=== PATIENT | male | born 1990 | race African-American/Black ===

== ENCOUNTER 2022-10-23 09:32 | Outpatient (CLI) | payer OTHER ==
--- NOTE | 2022-10-23 16:50 | MRI Report ---
PROCEDURE: HIP WO - LT INDICATIONS: LEFT HIP PAIN TECHNIQUE: Noncontrast coronal T1 spin echo and STIR through the bony pelvis. Coronal and axial T2 fast spin ec ho with fat saturation, sagittal T1 spin echo, and oblique axial T2 fast spin echo with fat saturatio n through the hip. COMPARISON: None. FINDINGS: Image quality: Excellent. Bones and joints: Bone marrow of the pelvic ring and proximal femurs show normal signal throughout. No intraosseous lesions or fractures. No avascular necrosis of the femoral heads. The visualized l ower lumbar spine appears normally aligned. Tendons: The gluteus medius and minimus tendons appear intact, without associated muscle atrophy. T he iliopsoas tendon appears intact, without adjacent bursal fluid collections. The origin of the ham string tendon is intact at the ischial tuberosity. Labrum and cartilage: The acetabular labrum appears intact in the absence of intra-articular contras t. Cartilage surface of the femoral head appears of normal thickness. The alpha angle of the femur is within normal limits at less than 55 degrees. Soft tissues: Visualized muscles demonstrate normal bulk and internal signal. The proximal sciatic neurovascular bundle appears normal adjacent to the hamstring tendons. No free pelvic fluid. Bladde r wall thickness is normal. Genitourinary structures and bowel loops appear normal where visualized. IMPRESSION: This is a normal study. Reviewed by: Urszula Roach MD on 10/23/2022 4:48 PM PDT Approved by: Urszula Roach MD on 10/23/2022 4:48 PM PDT Station ID: [id number]
== END 2022-10-23 09:33 | disposition home or self-care (01) ==
LOC: DI 09:32
PROVIDERS: ATTEND Anesthesiology
DX: M25.552 Pain in left hip (principal)

== ENCOUNTER 2023-03-27 07:07 | Emergency (ER) | payer OTHER ==
[2023-03-27 08:05] LABS: BASOPHILS # (AUTO) 0.1 10^3/uL (0.0-0.1); BASOPHILS % (AUTO) 0.6 %; EOSINOPHILS # (AUTO) 0.1 10^3/uL (0.0-0.7); EOSINOPHILS % (AUTO) 0.5 %; HCT - HEMATOCRIT 43.7 % (42.0-52.0); HGB - HEMOGLOBIN 14.1 g/dL (14.0-18.0); LYMPHOCYTES # (AUTO) 1.4 10^3/uL (1.5-3.5); LYMPHOCYTES % (AUTO) 14.6 %; MEAN CORPUSCULAR HEMOGLOBIN 23.1 pg (27.0-31.0); MEAN CORPUSCULAR HGB CONC 32.3 g/dL (32.0-36.0); MEAN CORPUSCULAR VOLUME 71.6 fL (80.0-94.0); MEAN PLATELET VOLUME 8.1 fL (7.4-11.4); MONOCYTES # (AUTO) 0.9 10^3/uL (0.0-1.0); NEUTROPHILS # (AUTO) 7.4 10^3/uL (1.5-6.6); NRBC ABSOLUTE COUNT (AUTO) 0.03 x10^3/uL; NUCLEATED RED BLOOD CELLS AUTO 0.3 /100WBC; PLT - PLATELET COUNT 243 10^3/uL (130-450); RED CELL DISTRIBUTION WIDTH 16.2 % (12.0-15.0); WHITE BLOOD COUNT 9.8 x10^3/uL (4.8-10.8)
[2023-03-27 08:20] LABS: ALBUMIN 5.2 g/dL (3.2-5.5); ALBUMIN/GLOBULIN RATIO 1.6 (1.0-2.2); BILIRUBIN,TOTAL 1.9 mg/dL (0.2-1.0); CALCIUM 10.4 mg/dL (8.5-10.3); CREATININE 0.9 mg/dL (0.6-1.3); POTASSIUM 3.9 mmol/L (3.5-4.5); TOTAL PROTEIN 8.4 g/dL (6.4-8.9)
[2023-03-27 08:36] LABS: GLUCOSE, URINE (UA) NEGATIVE (NEGATIVE); KETONES,URINE (UA) >=80 mg/dL (NEGATIVE); LEUKOCYTE ESTERASE, URINE NEGATIVE (NEGATIVE); NITRITE,URINE NEGATIVE (NEGATIVE); OCCULT BLOOD,URINE TRACE-LYSE (NEGATIVE); PH,URINE 7.5 PH (5.0-7.5); PROTEIN,URINE 30 mg/dL (NEGATIVE); UROBILINOGEN,URINE 1 (NORMAL) E.U./dL (NORMAL)
--- NOTE | 2023-03-27 08:39 | ED Physician Documentation ---
PD HPI NVD - Stated complaint Stated Complaint: VOMITING,ABD PX - Chief complaint Chief Complaint: Abd Pain - History obtained from History obtained from: Patient - History of Present Illness Timing - onset: Yesterday Timing - duration: Days (1) Timing - details: Abrupt onset, Still present (but less cramping and pain. Nausea today without vomiting.) Associated symptoms: Abdominal pain (cramping intermittent diffuse/mid abd) Contributing factors: No: Sick contact, Bad food Improved by: No: Eating Worsened by: Eating Similar symptoms before: Has not had sx before PD PAST MEDICAL HISTORY - Past Medical History Past Medical History: No - Past Surgical History Past Surgical History: No - Present Medications Home Medications: Ambulatory Orders Medication Instructions Recorded Confirmed Ondansetron Odt [Zofran] 4 mg TL Q6H PRN #10 tablet 03/27/23 - Allergies Allergies/Adverse Reactions: Allergies Allergy/AdvReac Type Severity Reaction Status Date / Time No Known Drug Allergies Allergy Verified 03/27/23 07:32 - Social History Does the pt smoke?: No Smoking Status: Never smoker PD ED PE NORMAL - Vitals Vital signs reviewed: Yes - General General: Alert and oriented X 3, No acute distress, Well developed/nourished - Neck Neck: Supple, no meningeal sign, No adenopathy - Cardiac Cardiac: RRR, No murmur - Respiratory Respiratory: No respiratory distress - Abdomen Abdomen: Normal bowel sounds, Soft, Non tender, Non distended - Derm Derm: Normal color, Warm and dry Results - Labs Labs: Laboratory Tests 03/27/23 03/27/23 03/27/23 08:00 08:00 08:24 WBC 9.8 RBC 6.10 Hgb 14.1 Hct 43.7 MCV 71.6 L MCH 23.1 L MCHC 32.3 RDW 16.2 H Plt Count 243 MPV 8.1 Neut # (Auto) 7.4 H Lymph # (Auto) 1.4 L Roane # (Auto) 0.9 Eos # (Auto) 0.1 Baso # (Auto) 0.1 Absolute Nucleated RBC 0.03 Nucleated RBC % 0.3 Sodium 137 Potassium 3.9 Chloride 94 L Carbon Dioxide 32 Anion Gap 11.0 BUN 12 Creatinine 0.9 Estimated GFR (MDRD) 120 Glucose 119 H Calcium 10.4 H Total Bilirubin 1.9 H AST 28 ALT 31 Alkaline Phosphatase 90 Total Protein 8.4 Albumin 5.2 Globulin 3.2 Albumin/Globulin Ratio 1.6 Lipase 44 Urine Color YELLOW Urine Clarity CLEAR Urine pH 7.5 Ur Specific Bowen 1.015 Urine Protein 30 H Urine Glucose (UA) NEGATIVE Urine Ketones >=80 H Urine Occult Blood TRACE-LYSE Urine Nitrite NEGATIVE Urine Bilirubin NEGATIVE Urine Urobilinogen 1 (NORMAL) Ur Leukocyte Esterase NEGATIVE Urine RBC 0-5 Urine WBC 0-3 Ur Squamous Epith Cells FEW Squamous Urine Bacteria Few Ur Microscopic Review INDICATED Urine Culture Comments NOT INDICATED PD Medical Decision Making - ED course Complexity details: reviewed results (normal lytes and renal fucntion. No elevation of LFTs nor lipase. ), re-evaluated patient (feeling improved with meds of Zofran and Mylanta. Able to take PO intake.), considered differential (abrupt nausea dn vomting with some loose stools. Nonfocal abd pain and not tender at this time. shared decision to treat at viral/food related and low suspicion for appy/etc. He feels he does not need IV. Given PO Zofran and antacid. Labs but defer imaging at this time. ), d/w patient Departure - Departure Disposition: 01 Home, Self Care Clinical Impression: Nausea and vomiting Condition: Stable Record reviewed to determine appropriate education?: Yes Instructions: ED Nausea Vomiting Follow-Up: MARILY Monge [Provider Group] Prescriptions: Ondansetron Odt [Zofran] 4 mg TL Q6H PRN #10 tablet PRN Reason: Nausea / Vomiting Comments: This sounds most likely to be a viral "stomach flu" or a food and tolerance or irritation. Typically these hit hard for a day or so and then improved. At this point there is low suspicion for other problems such as appendix etc. Rest today with small frequent fluids and bland food initially. Progress diet as tolerated. Ondansetron every 4-6 hours if needed for nausea. I sent prescription to [facility] pharmacy. Add in Tylenol if needed for pains or fevers. Antacid such as Maalox or Mylanta may be helpful for if the stomach is irritated. Recheck if not improved well over the next day and return if worsening again. Forms: PCP List, Activity restrictions Discharge Date/Time: 03/27/23 09:53
[2023-03-27 08:40] LABS: CLARITY,URINE CLEAR (CLEAR)
[2023-03-27 08:44] LABS: BILIRUBIN,URINE NEGATIVE (NEGATIVE); ICTOTEST,URINE NEGATIVE
[2023-03-27 09:08] LABS: BACTERIA,URINE Few /HPF (None Seen); RBC,URINE 0-5 /HPF (0-5); SQUAMOUS EPITHELIAL CELL,UR FEW Squamous (<= Few); WBC,URINE 0-3 /HPF (0-3)
[2023-03-27] MEDS ORDERED: ONDANSETRON ODT 4 MG TABLET TL STA (09:29)
[2023-03-27] MEDS ORDERED: MAG HYDROX/AL HYDROX/SIMETH 30 ML UDC PO STA (09:30)
[2023-03-27 09:44] VITALS: BP 142/88; O2SAT 97
== END 2023-03-27 09:53 | disposition home or self-care (01) ==
LOC: ED 07:07
DX: R11.2 Nausea with vomiting, unspecified (principal)
CPT/HCPCS: 36415; 80053; 81001; 83690; 85025; 99283; A9270; Q0162; 81003; 87086